=== PATIENT | male | born 2000 | race Caucasian/White ===

== ENCOUNTER 2024-01-25 20:02 | Emergency (ER) | payer BC ==
[2024-01-25] MEDS: Lidocaine 1% 5 ML VIAL INJECT ONE (20:59)
== END 2024-01-25 21:26 | disposition home or self-care (01) ==
LOC: JP.ED 20:02
DX: S01.511A Laceration without foreign body of lip, initial encounter (principal); F17.210 Nicotine dependence, cigarettes, uncomplicated; W22.8XXA Striking against or struck by other objects, initial encounter
CPT/HCPCS: 12013; 99282; 99283